=== PATIENT | female | born 1935 | race Caucasian/White ===

== ENCOUNTER 2021-07-26 08:19 | Emergency (ER) | payer OTHER ==
[~2021-07-26] VITALS: Ht 170.2 cm; Wt 40.8 kg
[2021-07-26 08:35] VITALS: BP 126/72
--- NOTE | 2021-07-26 09:04 | NUR ---
BIBA TO ER BED 4
[2021-07-26 15:12] VITALS: BP 122/70
--- NOTE | 2021-07-26 15:13 | NUR ---
Patient discharged with v/s stable. Written and verbal after care instructions given GTUBE MALFUNCTION and explained. Patient verbalized understanding. Ambulance Transport with to home. All questions addressed prior to discharge. Advised to follow up with PMD.
== END 2021-07-26 13:59 | disposition home or self-care (01) ==
LOC: MED 08:19
DX: K94.21 Gastrostomy hemorrhage (principal); Z20.822 Contact with and (suspected) exposure to COVID-19
CPT/HCPCS: 87426; 99285; U0003